=== PATIENT | female | born 1985 | race Caucasian/White ===

== ENCOUNTER → 2017-02-01 | Outpatient (CLI) | payer OTHER | END | disposition home or self-care (01) | LOC: MW.CHOBGYN 16:18 | PROVIDERS: ATTEND Obstetrics & Gynecology | DX: R10.2 Pelvic and perineal pain (principal) | CPT/HCPCS: 36415; 81025; 85025; 87480; 87510; 87660; G0145 ==

== ENCOUNTER → 2017-02-01 | Outpatient (CLI) | payer OTHER | END | disposition home or self-care (01) | LOC: MW.CHOBGYN 16:18 | PROVIDERS: ATTEND Obstetrics & Gynecology | DX: Z12.4 Encounter for screening for malignant neoplasm of cervix (principal); R10.2 Pelvic and perineal pain; N89.8 Other specified noninflammatory disorders of vagina | CPT/HCPCS: 87480; 87510; 87660; G0145 ==

== ENCOUNTER 2017-09-01 22:51 | Emergency (ER) | payer OTHER ==
--- NOTE | 2017-09-01 22:57 | EDM.PDOC ---
ED HPI GENERAL MEDICAL PROBLEM - General Chief Complaint: Chest Pain Stated Complaint: CHEST PAIN Time Seen by Provider: 09/01/17 22:56 - History of Present Illness INITIAL COMMENTS - FREE TEXT/NARRATIVE: HISTORY AND PHYSICAL: History of present illness: Patient 31-year-old white female with no significant past medical history presents a concern of chest pain this is vaguely describes mid chest without associated nausea vomiting palpitations shortness breath diaphoresis or other concern she denies trauma denies history of DVT or pulmonary embolism Review of systems: As per history of present illness and below otherwise all systems reviewed and negative. Past medical history: As per history of present illness and as reviewed below otherwise noncontributory. Surgical history: As per history of present illness and as reviewed below otherwise noncontributory. Social history: No reported history of drug or alcohol abuse. Family history: As per history of present illness and as reviewed below otherwise noncontributory. Physical exam: HEENT: Atraumatic, normocephalic, pupils reactive, negative for conjunctival pallor or scleral icterus, mucous membranes moist, throat clear, neck supple, nontender, trachea midline. Lungs: Clear to auscultation, breath sounds equal bilaterally, chest nontender. Heart: S1S2, regular, negative for clicks, rubs, or JVD. Abdomen: Soft, nondistended, nontender. Negative for masses or hepatosplenomegaly. Negative for costovertebral tenderness. Pelvis: Stable nontender. Genitourinary: Deferred. Rectal: Deferred. Extremities: Atraumatic, negative for cords or calf pain. Neurovascular unremarkable. Neuro: Awake, alert, oriented. Cranial nerves II through XII unremarkable. Cerebellum unremarkable. Motor and sensory unremarkable throughout. Exam nonfocal. Diagnostics: CBC CMP troponin PT/INR d-dimer chest x-ray EKG Therapeutics: None Impression: #1 atypical chest pain Definitive disposition and diagnosis as appropriate pending reevaluation and review of above. - Related Data Allergies Allergy/AdvReac Type Severity Reaction Status Date / Time Sulfa (Sulfonamide Allergy Hives Verified 09/01/17 22:56 Antibiotics) Home Meds: Home Meds Topiramate 1 tab PO BID 09/01/17 [History] ED ROS GENERAL - Review of Systems Review Of Systems: ROS reveals no pertinent complaints other than HPI. ED EXAM, GENERAL - Physical Exam Exam: See Below (See dictation) Course - Vital Signs Last Recorded V/S: Last Vital Signs Temp 36.8 C 09/01/17 23:00 Pulse 58 L 09/01/17 23:30 Resp 17 09/01/17 23:30 BP 112/77 09/01/17 23:30 Pulse Ox 100 09/01/17 23:30 - Orders/Labs/Meds Orders: Active Orders 24 hr Category Date Time Status EKG Documentation Completion [RC] STAT Care 09/01/17 22:53 Active Chest 1V Frontal [CR] Stat Exams 09/01/17 22:53 Taken Labs: Laboratory Tests 09/01/17 09/01/17 09/01/17 Range/Units 23:01 23:01 23:01 WBC 11.05 H (4.0-11.0) K/uL RBC 4.36 (4.30-5.90) M/uL Hgb 12.9 (12.0-16.0) g/dL Hct 38.3 (36.0-46.0) % MCV 87.8 (80.0-98.0) fL MCH 29.6 (27.0-32.0) pg MCHC 33.7 (31.0-37.0) g/dL RDW Std Deviation 42.9 (28.0-62.0) fl RDW Coeff of [place] 13 (11.0-15.0) % Plt Count 342 (150-400) K/uL MPV 10.00 (7.40-12.00) fL Neut % (Auto) 60.0 (48.0-80.0) % Lymph % (Auto) 29.8 (16.0-40.0) % [place] % (Auto) 8.4 (0.0-15.0) % Eos % (Auto) 1.4 (0.0-7.0) % Baso % (Auto) 0.4 (0.0-1.5) % Neut # (Auto) 6.6 H (1.4-5.7) K/uL Lymph # (Auto) 3.3 H (0.6-2.4) K/uL [place] # (Auto) 0.9 H (0.0-0.8) K/uL Eos # (Auto) 0.2 (0.0-0.7) K/uL Baso # (Auto) 0.0 (0.0-0.1) K/uL Nucleated RBC % 0.0 /100WBC Nucleated RBCs # 0 K/uL D-Dimer, Quantitative < 0.19 (0.0-0.52) mg/LFEU Sodium 141 (136-146) mmol/L Potassium 3.8 (3.5-5.1) mmol/L Chloride 114 H (98-110) mmol/L Carbon Dioxide 20 L (21-31) mmol/L BUN 18 (6.0-23.0) mg/dL Creatinine 1.0 (0.6-1.5) mg/dL Est Cr Clr Drug Dosing 79.14 mL/min Estimated GFR (MDRD) > 60.0 ml/min Glucose 101 (60-110) mg/dL Calcium 9.0 (8.8-10.8) mg/dL Total Bilirubin 0.3 (0.1-1.5) mg/dL AST 31 (5-40) IU/L ALT 26 (8-54) IU/L Alkaline Phosphatase 46 (40-150) Troponin I < 0.10 (0.0-0.29) NG/ML Total Protein 7.2 (6.0-8.0) g/dL Albumin 4.2 (3.5-5.0) g/dL Globulin 3.0 (2.0-3.5) g/dL Albumin/Globulin Ratio 1.4 (1.3-2.8) Meds: Medications Discontinued Medications Generic Name Dose Route Start Last Admin Trade Name Freq PRN Reason Stop Dose Admin Lidocaine HCl Confirm 09/01/17 23:08 09/01/17 23:17 Xylocaine 1% Administered 09/01/17 23:09 Not Given Dose 20 ml .ROUTE .STK-MED ONE Departure - Departure Time of Disposition: 23:52 Disposition: Home, Self-Care 01 Condition: Good Clinical Impression: Atypical chest pain - Discharge Information Referrals: PCP,None [Primary Care Provider] - Forms: ED Department Discharge Additional Instructions: The following information is given to patients seen in the emergency department who are being discharged to home. This information is to outline your options for follow-up care. We provide all patients seen in our emergency department with a follow-up referral. The need for follow-up, as well as the timing and circumstances, are variable depending upon the specifics of your emergency department visit. If you don't have a primary care physician on staff, we will provide you with a referral. We always advise you to contact your personal physician following an emergency department visit to inform them of the circumstance of the visit and for follow-up with them and/or the need for any referrals to a consulting specialist. The emergency department will also refer you to a specialist when appropriate. This referral assures that you have the opportunity for followup care with a specialist. All of these measure are taken in an effort to provide you with optimal care, which includes your followup. Under all circumstances we always encourage you to contact your private physician who remains a resource for coordinating your care. When calling for followup care, please make the office aware that this follow-up is from your recent emergency room visit. If for any reason you are refused follow-up, please contact the [facility] emergency department at and asked to speak to the emergency department charge nurse. Motrin/Tylenol as directed follow-up private medical doctor 1-2 days return as needed as discussed - My Orders Last 24 Hours: My Active Orders 09/01/17 22:53 EKG Documentation Completion [RC] STAT Chest 1V Frontal [CR] Stat - Assessment/Plan Last 24 Hours: My Active Orders 09/01/17 22:53 EKG Documentation Completion [RC] STAT Chest 1V Frontal [CR] Stat
[2017-09-01] MEDS ORDERED: Lidocaine 1% 20 ML MDV ONE (23:08)
[2017-09-01 23:28] LABS: CHLORIDE,CL 114 mmol/L (98-110); SODIUM,NA 141 mmol/L (136-146)
--- NOTE | 2017-09-02 10:57 | CR ---
EXAM DATE: 09/01/17 PATIENT'S AGE: 31 Patient: DIOMEDES SIMMONS Facility: [place], [place] Site . Site : 1985 Study: XRay Chest [id number]/25/2017 11:25:02 PM Ordering Physician: Doctor Reyes Final Report: INDICATION: Chest pain. TECHNIQUE: Chest radiograph 1 view COMPARISON: None FINDINGS: Cardiovascular and mediastinum: The heart silhouette is normal in size and morphology. The mediastinum is normal in appearance. Lungs and pleural spaces: Both lungs are unremarkable in appearance. No sign of pleural effusion seen. No pneumothorax is identified. Bones and soft tissues: No significant findings. IMPRESSION: 1. Negative chest. Dictated by Jonathan Tai MD @ 09/01/2017 11:29:29 PM Dictated by: Jonathan Tai MD @ 09/01/2017 23:29:35 (Electronic Signature) Report Signed by Proxy. MTDAl
== END 2017-09-02 00:03 | disposition home or self-care (01) ==
LOC: MW.ED 22:51
DX: R07.89 Other chest pain (principal); Z88.2 Allergy status to sulfonamides
CPT/HCPCS: 71010; 71010-26; 80053; 84484; 85025; 85379; 93005; 99283; 99285-25

== ENCOUNTER 2018-04-14 09:07 | Day surgery (SDC) | payer OTHER ==
[~2018-04-14 09:07] MED LIST: Acetaminophen 1,000 MG in Premix Bag 1 BAG IV SCH; Lactated Ringers 1,000 ML IV SCH; Scopolamine 1.5 MG Transdermal Patch TRDERM PRN; Sodium Chloride 0.9% 10 ML Syringe FLUSH PRN; Sodium Chloride 0.9% 2.5 ML Syringe FLUSH PRN; fentaNYL 100 MCG/2 ML SDV IVPUSH PRN
--- NOTE | 2018-04-14 09:43 | PCM.PREANE ---
Preanesthetic Assessment - Anesthesia/Transfusion/Family Hx Anesthesia History: Prior Anesthesia Without Reaction Family History of Anesthesia Reaction: No Transfusion History: No Prior Transfusion(s) - Review of Systems General: No Symptoms Pulmonary: No Symptoms Cardiovascular: No Symptoms Gastrointestinal: No Symptoms Neurological: No Symptoms Other: Reports: None - Physical Assessment NPO Status Date: 04/13/18 O2 Sat by Pulse Oximetry: 100 Respiratory Rate: 16 Vital Signs: Last Vital Signs Temp 35.5 C 04/14/18 09:23 Pulse 43 L 04/14/18 09:23 Resp 16 04/14/18 09:23 BP 113/69 04/14/18 09:23 Pulse Ox 100 04/14/18 09:23 Height: 1.83 m Weight: 63.049 kg ASA Class: 2 Mental Status: Alert & Oriented x3 Airway Class: Mallampati = 1 Dentition: Reports: Normal Dentition ROM/Head Extension: Full Lungs: Clear to Auscultation, Normal Respiratory Effort Cardiovascular: Regular Rate, Regular Rhythm - Lab Values: Laboratory Last Values WBC 9.71 K/uL (4.0-11.0) 04/13/18 15:46 RBC 4.67 M/uL (4.30-5.90) 04/13/18 15:46 Hgb 13.8 g/dL (12.0-16.0) 04/13/18 15:46 Hct 41.3 % (36.0-46.0) 04/13/18 15:46 MCV 88.4 fL (80.0-98.0) 04/13/18 15:46 MCH 29.6 pg (27.0-32.0) 04/13/18 15:46 MCHC 33.4 g/dL (31.0-37.0) 04/13/18 15:46 RDW Std Deviation 42.6 fl (28.0-62.0) 04/13/18 15:46 RDW Coeff of [place] 13 % (11.0-15.0) 04/13/18 15:46 Plt Count 318 K/uL (150-400) 04/13/18 15:46 MPV 10.10 fL (7.40-12.00) 04/13/18 15:46 Nucleated RBC % 0.0 /100WBC 04/13/18 15:46 Nucleated RBCs # 0 K/uL 04/13/18 15:46 Sodium 137 mmol/L (136-145) 04/13/18 15:46 Potassium 3.5 mmol/L (3.5-5.1) 04/13/18 15:46 Chloride 104 mmol/L (98-107) 04/13/18 15:46 Carbon Dioxide 23.0 mmol/L (21.0-32.0) 04/13/18 15:46 BUN 22 mg/dL (7.0-18.0) H 04/13/18 15:46 Creatinine 1.1 mg/dL (0.6-1.0) H 04/13/18 15:46 Est Cr Clr Drug Dosing 73.08 mL/min 04/13/18 15:46 Estimated GFR (MDRD) 57.6 ml/min 04/13/18 15:46 Glucose 92 mg/dL (74-106) 04/13/18 15:46 Calcium 8.6 mg/dL (8.5-10.1) 04/13/18 15:46 HCG, Qual NEGATIVE (NEG) 04/13/18 15:46 Blood Type AB POSITIVE 04/13/18 15:46 Antibody Screen NEGATIVE 04/13/18 15:46 - Allergies Allergies/Adverse Reactions: Allergies Allergy/AdvReac Type Severity Reaction Status Date / Time Sulfa (Sulfonamide Allergy Hives Verified 04/11/18 09:57 Antibiotics) - Anesthesia Plan Pre-Op Medication Ordered: None - Acknowledgements Anesthesia Type Planned: General Anesthesia Pt an Appropriate Candidate for the Planned Anesthesia: Yes Alternatives and Risks of Anesthesia Discussed w Pt/Guardian: Yes Pt/Guardian Understands and Agrees with Anesthesia Plan: Yes Additional Comments: PMH: seizure disorder, no seizures for years, migraines PLAN: GA-ETT PreAnesthesia Questionnaire HEENT History: Reports: None Cardiovascular History: Reports: None Respiratory History: Reports: None Gastrointestinal History: Reports: None Genitourinary History: Reports: None PASTE MIXER History: Reports: None Musculoskeletal History: Reports: None Neurological History: Reports: Seizure Other Neuro History: grand mal seizure in 2007, none since Psychiatric History: Reports: Anxiety Endocrine/Metabolic History: Reports: None Hematologic History: Reports: None Immunologic History: Reports: None Oncologic (Cancer) History: Reports: None Dermatologic History: Reports: None - Infectious Disease History Infectious Disease History: Reports: None - Past Surgical History Head Surgeries/Procedures: Reports: None HEENT Surgical History: Reports: Tonsillectomy - SUBSTANCE USE Smoking Status *Q: Never Smoker Recreational Drug Use History: No - HOME MEDS Home Medications: Home Meds Multivitamin [Multivitamins] 1 tab PO DAILY 04/11/18 [History] Norethindrone [Eladia] 1 tab PO DAILY 04/11/18 [History] Topiramate 1.5 tab PO BID 04/11/18 [History] - CURRENT (IN HOUSE) MEDS Current Meds: Current Medications Fentanyl (Sublimaze) 50 mcg IVPUSH .Q5MIN PRN PRN Reason: Pain Lactated Ringer's (Ringers, Lactated) 1,000 mls @ 125 mls/hr IV ASDIRECTED EDSON Last Admin: 04/14/18 09:29 Dose: 125 mls/hr Acetaminophen 1,000 mg/ Premix 100 mls @ 400 mls/hr IV .ONETIME [facility] Scopolamine (Transderm-Scop) 1.5 mg TRDERM .ONCE PRN PRN Reason: Post Op Nausea Sodium Chloride (Saline Flush) 10 ml FLUSH ASDIRECTED PRN PRN Reason: Keep Vein Open Sodium Chloride (Saline Flush) 2.5 ml FLUSH ASDIRECTED PRN PRN Reason: Keep Vein Open
[2018-04-14] MEDS ORDERED: Lidocaine 2% 5 ML SDV ONE (10:32)
[2018-04-14] MEDS ORDERED: Ondansetron 4 MG/2 ML SDV ONE (10:32)
[2018-04-14] MEDS ORDERED: Rocuronium 10 MG/ML 10 ML Syringe ONE (10:32)
[2018-04-14] MEDS ORDERED: fentaNYL 250 MCG/5 ML SDV ONE (10:33)
[2018-04-14] MEDS ORDERED: Propofol 200 MG/20 ML SDV ONE (10:33)
[2018-04-14] MEDS ORDERED: Midazolam 1 MG/ML 2 ML SDV ONE (10:33)
[2018-04-14] MEDS ORDERED: hydrALAZINE 20 MG/ML SDV ONE (11:06)
[2018-04-14] MEDS ORDERED: Octyl 2-Cyanoacrylate 1 Tube ONE (11:06)
[2018-04-14] MEDS ORDERED: ePHEDrine 50 MG/ML SDV ONE (11:59)
[2018-04-14] MEDS ORDERED: Phenylephrine/Normal Saline 100 MCG/ML 10 ML Syringe ONE (12:07)
[2018-04-14] MEDS ORDERED: Dexamethasone 4 MG/ML 5 ML MDV ONE (13:17)
[2018-04-14] MEDS ORDERED: Neostigmine Methylsulfate 1 MG/ML 5 ML Syringe ONE (13:35)
[2018-04-14] MEDS ORDERED: Glycopyrrolate 0.2 MG/ML SDV ONE (13:35)
[2018-04-14] MEDS ORDERED: Ondansetron 4 MG/2 ML SDV IVPUSH PRN (13:55)
[2018-04-14] MEDS ORDERED: Acetaminophen/oxyCODONE 325-5 MG Tab PO PRN ×2 (13:55)
[2018-04-14] MEDS ORDERED: Promethazine 25 MG/ML SDV IM PRN (13:55)
[2018-04-14] MEDS ORDERED: Ketorolac 30 MG/ML SDV IVPUSH ONE (13:55)
[2018-04-14] MEDS ORDERED: Ketorolac 30 MG/ML SDV IVPUSH PRN (13:55)
[2018-04-14] MEDS ORDERED: Morphine 2 MG/ML Syringe IVPUSH PRN (13:55)
--- NOTE | 2018-04-14 14:00 | PCM.OPNOTE ---
- General Post-Op/Procedure Note Date of Surgery/Procedure: 04/14/18 Operative Procedure(s): Dignostic Laparscopy, lysis of adhesion, Myomectomy Post-Op Diagnosis: Same Primary Surgeon: Jaime Banuelos Allied Health Professional: Briana Shukla EBL in mLs: 50 Complications: None Condition: Good
--- NOTE | 2018-04-14 14:01 | PCM.DCSUM1 ---
Discharge Summary - Discharge Data Discharge Date: 04/14/18 Discharge Disposition: Home, Self-Care 01 Condition: Good - Patient Summary/Data Operative Procedure(s) Performed: Dignostic Laparscopy, lysis of adhesion, Myomectomy - Patient Instructions Diet: Usual Diet as Tolerated Activity: As Tolerated Driving: Do Not Drive Showering/Bathing: May Shower Wound/Incision Care: Keep Operative Site/Wound Site Clean and Dry Notify Provider of: Fever - Discharge Plan Home Medications: Home Meds Multivitamin [Multivitamins] 1 tab PO DAILY 04/11/18 [History] Norethindrone [Eladia] 1 tab PO DAILY 04/11/18 [History] Topiramate 1.5 tab PO BID 04/11/18 [History] - General Info Date of Service: 04/14/18 Functional Status: Reports: Pain Controlled - Review of Systems General: Reports: No Symptoms HEENT: Reports: No Symptoms Pulmonary: Reports: No Symptoms Cardiovascular: Reports: No Symptoms Gastrointestinal: Reports: No Symptoms Genitourinary: Reports: No Symptoms Musculoskeletal: Reports: No Symptoms Skin: Reports: No Symptoms Neurological: Reports: No Symptoms Psychiatric: Reports: No Symptoms - Patient Data Vitals - Most Recent: Last Vital Signs Temp 35.5 C 04/14/18 09:23 Pulse 43 L 04/14/18 09:23 Resp 16 04/14/18 09:43 BP 113/69 04/14/18 09:23 Pulse Ox 100 04/14/18 09:43 Weight - Most Recent: 63.049 kg Lab Results - Last 24 hrs: Laboratory Results - last 24 hr 04/13/18 04/13/18 04/13/18 Range/Units 15:46 15:46 15:46 WBC 9.71 (4.0-11.0) K/uL RBC 4.67 (4.30-5.90) M/uL Hgb 13.8 (12.0-16.0) g/dL Hct 41.3 (36.0-46.0) % MCV 88.4 (80.0-98.0) fL MCH 29.6 (27.0-32.0) pg MCHC 33.4 (31.0-37.0) g/dL RDW Std Deviation 42.6 (28.0-62.0) fl RDW Coeff of [place] 13 (11.0-15.0) % Plt Count 318 (150-400) K/uL MPV 10.10 (7.40-12.00) fL Nucleated RBC % 0.0 /100WBC Nucleated RBCs # 0 K/uL Sodium 137 (136-145) mmol/L Potassium 3.5 (3.5-5.1) mmol/L Chloride 104 (98-107) mmol/L Carbon Dioxide 23.0 (21.0-32.0) mmol/L BUN 22 H (7.0-18.0) mg/dL Creatinine 1.1 H (0.6-1.0) mg/dL Est Cr Clr Drug Dosing 73.08 mL/min Estimated GFR (MDRD) 57.6 ml/min Glucose 92 (74-106) mg/dL Calcium 8.6 (8.5-10.1) mg/dL HCG, Qual NEGATIVE (NEG) Blood Type Antibody Screen 04/13/18 Range/Units 15:46 WBC (4.0-11.0) K/uL RBC (4.30-5.90) M/uL Hgb (12.0-16.0) g/dL Hct (36.0-46.0) % MCV (80.0-98.0) fL MCH (27.0-32.0) pg MCHC (31.0-37.0) g/dL RDW Std Deviation (28.0-62.0) fl RDW Coeff of [place] (11.0-15.0) % Plt Count (150-400) K/uL MPV (7.40-12.00) fL Nucleated RBC % /100WBC Nucleated RBCs # K/uL Sodium (136-145) mmol/L Potassium (3.5-5.1) mmol/L Chloride (98-107) mmol/L Carbon Dioxide (21.0-32.0) mmol/L BUN (7.0-18.0) mg/dL Creatinine (0.6-1.0) mg/dL Est Cr Clr Drug Dosing mL/min Estimated GFR (MDRD) ml/min Glucose (74-106) mg/dL Calcium (8.5-10.1) mg/dL HCG, Qual (NEG) Blood Type AB POSITIVE Antibody Screen NEGATIVE Med Orders - Current: Current Medications Fentanyl (Sublimaze) 50 mcg IVPUSH .Q5MIN PRN PRN Reason: Pain Lactated Ringer's (Ringers, Lactated) 1,000 mls @ 125 mls/hr IV ASDIRECTED EDSON Last Admin: 04/14/18 09:29 Dose: 125 mls/hr Acetaminophen 1,000 mg/ Premix 100 mls @ 400 mls/hr IV .ONETIME [facility] Last Admin: 04/14/18 12:41 Dose: 400 mls/hr Ketorolac Tromethamine (Toradol) 30 mg IVPUSH ONETIME ONE Stop: 04/14/18 13:56 Ketorolac Tromethamine (Toradol) 30 mg IVPUSH Q6H PRN PRN Reason: Pain (severe 7-10) Stop: 04/19/18 13:55 Morphine Sulfate (Morphine) 4 mg IVPUSH Q2H PRN PRN Reason: Pain (severe 7-10) Ondansetron HCl (Zofran) 4 mg IVPUSH Q6H PRN PRN Reason: Nausea/Vomiting Oxycodone/Acetaminophen (Percocet 325-5 Mg) 1 tab PO Q4H PRN PRN Reason: Pain (moderate 4-6) Oxycodone/Acetaminophen (Percocet 325-5 Mg) 2 tab PO Q4H PRN PRN Reason: Pain (moderate 4-6) Promethazine HCl (Phenergan) 25 mg IM Q6H PRN PRN Reason: Nausea/Vomiting Scopolamine (Transderm-Scop) 1.5 mg TRDERM .ONCE PRN PRN Reason: Post Op Nausea Last Admin: 04/14/18 12:41 Dose: 1.5 mg Sodium Chloride (Saline Flush) 10 ml FLUSH ASDIRECTED PRN PRN Reason: Keep Vein Open Sodium Chloride (Saline Flush) 2.5 ml FLUSH ASDIRECTED PRN PRN Reason: Keep Vein Open Discontinued Medications Dexamethasone (Dexamethasone) Confirm Administered Dose 20 mg .ROUTE .STK-MED ONE Stop: 04/14/18 13:18 Ephedrine Sulfate (Ephedrine Sulfate) Confirm Administered Dose 50 mg .ROUTE .STK-MED ONE Stop: 04/14/18 12:00 Fentanyl (Sublimaze) Confirm Administered Dose 250 mcg .ROUTE .STK-MED ONE Stop: 04/14/18 10:34 Glycopyrrolate (Robinul) Confirm Administered Dose 0.4 mg .ROUTE .STK-MED ONE Stop: 04/14/18 13:36 Hydralazine HCl (Apresoline) Confirm Administered Dose 20 mg .ROUTE .STK-MED ONE Stop: 04/14/18 11:07 Lidocaine (Xylocaine-Mpf 2%) Confirm Administered Dose 5 ml .ROUTE .STK-MED ONE Stop: 04/14/18 10:33 Midazolam HCl (Versed 1 Mg/Ml) Confirm Administered Dose 2 mg .ROUTE .STK-MED ONE Stop: 04/14/18 10:34 Neostigmine Methylsulfate (Neostigmine) Confirm Administered Dose 5 mg .ROUTE .STK-MED ONE Stop: 04/14/18 13:36 Octyl Cyanoacrylate (Dermabond Advance) Confirm Administered Dose 1 applic .ROUTE .STK-MED ONE Stop: 04/14/18 11:07 Ondansetron HCl (Zofran) Confirm Administered Dose 4 mg .ROUTE .STK-MED ONE Stop: 04/14/18 10:33 Phenylephrine HCl (Phenylephrine In Ns 100 Mcg/Ml) Confirm Administered Dose 1 mg .ROUTE .STK-MED ONE Stop: 04/14/18 12:08 Propofol (Diprivan 20 Ml) Confirm Administered Dose 200 mg .ROUTE .STK-MED ONE Stop: 04/14/18 10:34 Rocuronium [place] (Zemuron) Confirm Administered Dose 100 mg .ROUTE .STK-MED ONE Stop: 04/14/18 10:33 - Exam General: Reports: Alert, Oriented HEENT: Reports: Pupils Equal, Pupils Reactive, EOMI, Mucous Membr. Moist/[place] Neck: Reports: Supple Lungs: Reports: Clear to Auscultation, Normal Respiratory Effort Cardiovascular: Reports: Regular Rate, Regular Rhythm GI/Abdominal Exam: Normal Bowel Sounds, Soft, Non-Tender, No Organomegaly, No Distention, No Abnormal Bruit, No Mass, Pelvis Stable (Female) Exam: Normal External Exam, Normal Speculum Exam, Normal Bimanual Exam Rectal (Female) Exam: Normal Exam, Normal Rectal Tone Back Exam: Reports: Normal Inspection, Full Range of Motion Extremities: Normal Inspection, Normal Range of Motion, Non-Tender, No Pedal Edema, Normal Capillary Refill Skin: Reports: Warm, Dry, Intact Wound/Incisions: Reports: Healing Well Neurological: Reports: No New Focal Deficit Psy/Mental Status: Reports: Alert, Normal Affect, Normal Mood
--- NOTE | 2018-04-14 14:37 | PCM.POSTAN ---
POST ANESTHESIA ASSESSMENT - MENTAL STATUS Mental Status: Alert, Oriented - RESPIRATORY Respiratory Status: Respiratory Rate WNL, Airway Patent, O2 Saturation Stable - CARDIOVASCULAR CV Status: Pulse Rate WNL - GASTROINTESTINAL GI Status: No Symptoms - PAIN Pain Score: 0 - POST OP HYDRATION Hydration Status: Adequate & Stable - OBSERVATIONS Free Text/Narrative:: no anesthesia problems
--- NOTE | 2018-04-14 15:24 | PCM48HPAN ---
Post Anesthesia Note - EVALUATION WITHIN 48HRS OF ANESTHETIC Vital Signs in Normal Range: Yes Patient Participated in Evaluation: Yes Respiratory Function Stable: Yes Airway Patent: Yes Cardiovascular Function Stable: Yes Hydration Status Stable: Yes Pain Control Satisfactory: Yes Nausea and Vomiting Control Satisfactory: Yes Mental Status Recovered: Yes Resp Rate: 14
--- NOTE | 2018-04-15 12:54 | OR ---
SURGEON: Jaime Banuelos MD DATE OF PROCEDURE: 04/14/2018 PREOPERATIVE DIAGNOSIS: Pelvic pain, persistent. POSTOPERATIVE DIAGNOSES: 1. Pelvic pain, persistent. 2. Pain with a small pedunculated myoma at the top of the uterus and some pelvic scarring around the left ovary. OPERATIONS PERFORMED: Multiple puncture diagnostic laparoscopy, lysis of adhesion of the scarring around the left ovary using Harmonic scalpel, myomectomy. There was a small pedunculated fibroid at the top of the uterus, it was removed with the Harmonic scalpel without any problem. INDICATION: [place] refer to the admit note. FINDINGS: The right tubes and ovary essentially normal. There is no endometriosis. The right pelvic sidewall essentially is normal, there is no endometriosis. The cul- de-sac is normal, no endometriosis. The bladder flap is essentially normal. On the left side, there is scarring around the left ovary. There is no visible cyst in the ovary. The ovary essentially is normal. There is a small pedunculated fibroid on top of the uterus and there is no evidence of endometriosis. PROCEDURE IN DETAIL: The patient brought to the OR, properly identified. After adequate level of anesthesia and appropriate trocar to enter as we documented the findings above and I went ahead and used the Harmonic scalpel. I lysed the adhesion around the left tube and ovary, freeing the left tube and ovary completely and the small pedunculated fibroid, the stalk is coagulated and transected with Harmonic scalpel and the small fibroid removed. The removal of this fibroid should not impede this patient in the future to have a spontaneous vaginal delivery. After ascertaining there was no bleeding, no oozing multiple laparoscopic instruments were removed and the vaginal instrument was removed and the multiple laparoscopic incisions closed in layer with 3-0 Vicryl. Instrument and sponge count correct. The patient tolerated the procedure well. Went to recovery room in stable general condition. DANIEL / PIETRO /[id number]
== END 2018-04-14 15:45 | disposition home or self-care (01) ==
LOC: MW.SDS 09:07
PROVIDERS: ATTEND Obstetrics & Gynecology
DX: D25.9 Leiomyoma of uterus, unspecified (principal); N83.8 Other noninflammatory disorders of ovary, fallopian tube and broad ligament; G43.909 Migraine, unspecified, not intractable, without status migrainosus; Z79.899 Other long term (current) drug therapy; Z88.2 Allergy status to sulfonamides
CPT/HCPCS: 36415; 58545; 80048; 84703; 85027; 86850; 86900; 86901; A9270; J1100; J2250; J2405; J3010; J7120; J0360; J2704

== ENCOUNTER 2021-03-28 07:44 | Inpatient (IN) | payer OTHER ==
[2021-03-28] MEDS ORDERED: Terbutaline 1 MG/ML SDV SUBCUT PRN (08:24)
[2021-03-28] MEDS ORDERED: Misoprostol 25 MCG (1/4 of 100 MCG) Tab VAG PRN (08:24)
[2021-03-28] MEDS ORDERED: Tranexamic Acid 1,000 MG in Sodium Chloride 0.9% 100 ML IV PRN (08:32)
[2021-03-28] MEDS ORDERED: Sodium Chloride 0.9% 2.5 ML Syringe FLUSH PRN (08:32)
[2021-03-28] MEDS ORDERED: Water For Irrigation,Sterile 1,000 ML Container IRR PRN (08:32)
[2021-03-28] MEDS ORDERED: Methylergonovine 0.2 MG/1 ML Amp IM PRN (08:32)
[2021-03-28] MEDS ORDERED: Nalbuphine 10 MG/1 ML Vial IVPUSH PRN (08:32)
[2021-03-28] MEDS ORDERED: Ondansetron 4 MG/2 ML SDV IVPUSH PRN (08:32)
[2021-03-28] MEDS ORDERED: Lidocaine 1% 50 ML MDV INJECT PRN (08:32)
[2021-03-28] MEDS ORDERED: Butorphanol 1 MG/ML SDV IVPUSH PRN (08:32)
[2021-03-28] MEDS ORDERED: Sodium Chloride 0.9% 10 ML SDV IV PRN (08:32)
[2021-03-28] MEDS ORDERED: Sodium Chloride 0.9% 10 ML Syringe FLUSH PRN (08:32)
[2021-03-28] MEDS ORDERED: Carboprost Tromethamine 250 MCG/1 ML Amp IM PRN (08:32)
[2021-03-28] MEDS ORDERED: Misoprostol 200 MCG Tab PO PRN (08:32)
[2021-03-28] MEDS: Lactated Ringers 1,000 ML IV SCH ×3 (08:50→19:44)
[2021-03-28] MEDS: Misoprostol 25 MCG (1/4 of 100 MCG) Tab VAG PRN ×2 (09:07→13:11)
[2021-03-28] MEDS: Oxytocin/0.9 % Sodium Chloride 30 UNIT/500 ML BAG IV SCH ×4 (17:17→20:56)
[2021-03-28] MEDS ORDERED: Ropivacaine HCl/PF 200 ML ONE (18:55)
[2021-03-28] MEDS ORDERED: fentaNYL 100 MCG/2 ML SDV ONE (18:56)
--- NOTE | 2021-03-28 19:41 | PCM.PREANE ---
Preanesthetic Assessment - Procedure Proposed Procedure: H & P for JAZZY for active labor (full-term). - Anesthesia/Transfusion/Family Hx Anesthesia History: Prior Anesthesia Without Reaction (T & A, wisdom teeth, previous epidural, all without anesthesia complications.) Family History of Anesthesia Reaction: No Transfusion History: No Prior Transfusion(s) Additional History: History of seizures (3 in 2007). Unknown cause. Off of medication during with no recurrence. - Review of Systems General: No Symptoms Pulmonary: No Symptoms Cardiovascular: No Symptoms Gastrointestinal: No Symptoms Neurological: No Symptoms Other: Reports: None - Physical Assessment NPO Status Date: 03/28/21 NPO Status Time: 18:00 (Clear liquids okay) Height: 1.85 m Weight: 91.17 kg ASA Class: 2 Mental Status: Alert & Oriented x3 Dentition: Reports: Normal Dentition Thyro-Mental Finger Breadths: 4 Mouth Opening Finger Breadths: 3 ROM/Head Extension: Full Lungs: Normal Respiratory Effort Cardiovascular: Regular Rate, Regular Rhythm - Lab Values: Laboratory Last Values WBC 12.55 K/uL (4.0-11.0) H 03/28/21 08:05 RBC 4.02 M/uL (4.30-5.90) L 03/28/21 08:05 Hgb 11.2 g/dL (12.0-16.0) L 03/28/21 08:05 Hct 34.1 % (36.0-46.0) L 03/28/21 08:05 MCV 84.8 fL (80.0-98.0) 03/28/21 08:05 MCH 27.9 pg (27.0-32.0) 03/28/21 08:05 MCHC 32.8 g/dL (31.0-37.0) 03/28/21 08:05 RDW Std Deviation 40.9 fl (28.0-62.0) 03/28/21 08:05 RDW Coeff of [place] 13 % (11.0-15.0) 03/28/21 08:05 Plt Count 254 K/uL (150-400) 03/28/21 08:05 MPV 10.70 fL (7.40-12.00) 03/28/21 08:05 Nucleated RBC % 0.0 /100WBC 03/28/21 08:05 Nucleated RBCs # 0 K/uL 03/28/21 08:05 Blood Type AB POSITIVE 03/28/21 08:05 Antibody Screen NEGATIVE 03/28/21 08:05 - Allergies Allergies/Adverse Reactions: Allergies Allergy/AdvReac Type Severity Reaction Status Date / Time Sulfa (Sulfonamide Allergy Hives Verified 03/27/21 13:13 Antibiotics) - Acknowledgements Anesthesia Type Planned: Epidural Pt an Appropriate Candidate for the Planned Anesthesia: Yes Alternatives and Risks of Anesthesia Discussed w Pt/Guardian: Yes Pt/Guardian Understands and Agrees with Anesthesia Plan: Yes Additional Comments: Discussed epidural risks, benefits, alternatives, procedure, and DOCTOR OF DENTAL MEDICINE. All questions answered and concerns addressed. Consent signed with RN witness. PreAnesthesia Questionnaire HEENT History: Reports: None Cardiovascular History: Reports: None Respiratory History: Reports: None Gastrointestinal History: Reports: None Genitourinary History: Reports: None RN FLIGHT History: Reports: , Other (See Below) Other OB/BYN History: ovarian cyst removed in 2018 Musculoskeletal History: Reports: None Neurological History: Reports: Seizure Other Neuro History: grand mal seizure in 2007, none since Psychiatric History: Reports: Anxiety Endocrine/Metabolic History: Reports: None Hematologic History: Reports: None Immunologic History: Reports: None Oncologic (Cancer) History: Reports: None Dermatologic History: Reports: None - Infectious Disease History Infectious Disease History: Reports: None - Past Surgical History Head Surgeries/Procedures: Reports: None HEENT Surgical History: Reports: Tonsillectomy Cardiovascular Surgical History: Reports: None Female Surgical History: Reports: None Musculoskeletal Surgical History: Reports: None - HOME MEDS Home Medications: Home Meds Aspirin [Halfprin] 81 mg PO DAILY 03/27/21 [History] Vits #93/Iron Fum/FA [ Formula Tablet] 1 each PO DAILY 03/27/21 [History] - CURRENT (IN HOUSE) MEDS Current Meds: Current Medications Butorphanol Tartrate (Butorphanol 1 Mg/Ml Sdv) 1 mg IVPUSH Q1H PRN PRN Reason: Pain Last Admin: 03/28/21 17:23 Dose: 1 mg Documented by: Carboprost Tromethamine (Carboprost Tromethamine 250 Mcg/1 Ml Amp) 250 mcg IM ASDIRECTED PRN PRN Reason: Post Hemorrhage Oxytocin/Sodium Chloride (Oxytocin 30 Unit/500 Ml-Ns) 30 unit in 500 mls @ 2 mls/hr IV TITRATE EDSON; Protocol Last Admin: 03/28/21 17:17 Dose: 2 munits/min, 2 mls/hr Documented by: Lactated Ringer's (Ringers, Lactated) 1,000 mls @ 150 mls/hr IV ASDIRECTED EDSON Last Admin: 03/28/21 13:15 Dose: 150 mls/hr Documented by: Tranexamic Acid 1,000 mg/ (Sodium Chloride) 110 mls @ 660 mls/hr IV ONETIME PRN PRN Reason: Bleeding Lidocaine HCl (Lidocaine 1% 50 Ml Mdv) 50 ml INJECT ONETIME PRN PRN Reason: Laceration repair Methylergonovine Maleate (Methylergonovine 0.2 Mg/1 Ml Amp) 0.2 mg IM A SDIRECTED PRN PRN Reason: Post Hemorrhage Misoprostol (Misoprostol 25 Mcg (1/4 Of 100 Mcg) Tab) 25 mcg VAG ONETIME PRN PRN Reason: Cervical Ripening Misoprostol (Misoprostol 25 Mcg (1/4 Of 100 Mcg) Tab) 25 mcg VAG Q6H PRN PRN Reason: Cervical Ripening Last Admin: 03/28/21 13:11 Dose: 25 mcg Documented by: Misoprostol (Misoprostol 200 Mcg Tab) 200 mcg PO ONETIME PRN PRN Reason: Post Hemorrhage Nalbuphine HCl (Nalbuphine 10 Mg/1 Ml Vial) 10 mg IVPUSH Q1H PRN PRN Reason: Pain (severe 7-10) Ondansetron HCl (Ondansetron 4 Mg/2 Ml Sdv) 4 mg IVPUSH Q4H PRN PRN Reason: Nausea/Vomiting Sodium Chloride (Sodium Chloride 0.9% 10 Ml Syringe) 10 ml FLUSH ASDIRECTED PRN PRN Reason: Keep Vein Open Sodium Chloride (Sodium Chloride 0.9% 2.5 Ml Syringe) 2.5 ml FLUSH ASDIRECTED PRN PRN Reason: Keep Vein Open Sodium Chloride (Sodium Chloride 0.9% 10 Ml Sdv) 10 ml IV ASDIRECTED PRN PRN Reason: IV Use Sterile Water (Water For Irrigation,Sterile 1,000 Ml Container) 1,000 ml IRR ASDIRECTED PRN PRN Reason: delivery Terbutaline Sulfate (Terbutaline 1 Mg/Ml Sdv) 0.25 mg SUBCUT ASDIRECTED PRN PRN Reason: Tacysystole Discontinued Medications Fentanyl (Fentanyl 100 Mcg/2 Ml Sdv) Confirm Administered Dose 400 mcg .ROUTE .STK-MED ONE Stop: 03/28/21 18:57 Ropivacaine (Naropin 0.2%) Confirm Administered Dose 200 mls @ as directed .ROUTE .STK-MED ONE Stop: 03/28/21 18:56
--- NOTE | 2021-03-28 19:52 | PCM.SN.2 ---
- Free Text/Narrative Note: 1855- To LDR 4, thorough H&P with patient cooperation. Labs and chart reviewed. Discussed epidural risks, benefits, alternatives, procedure, and AUDIO VISUAL COLLECTIONS COORDINATOR. All questions answered and concerns addressed. 1899- Consent signed with RN witness. 190- Sitting position, ASA monitors on, VSS. Time-out. 1905- Sterile procedure employed (gloves, hat), chlorhexidine prep., sterile plastic drape. 191- Localized with lido 1% at L2-3 191- 1st attempt successful at L2-3. TJ with saline at 6.5cm, catheter threaded without resistance to 11cm. No paresthesias. 191- Negative to aspiration for both CSF and heme, test dose negative. 192- Bolus dose (8ml Ropivicaine 0.2% with 2 mcg/ml fentanyl) and continuous infusion started (10 ml/hr ropivicaine 0.2% with 2 mcg/ml fentanyl, 4ml AUDIO VISUAL COLLECTIONS COORDINATOR option every 10 min, hourly lockout 36ml). Education provided on AUDIO VISUAL COLLECTIONS COORDINATOR, verbalized understanding. 1946- Adequate pain control, T0 level, VSS.
[2021-03-29] MEDS ORDERED: oxyCODONE 5 MG Tab PO PRN (00:12)
[2021-03-29] MEDS ORDERED: Witch Hazel Medicated Pads 40/Jar TOP PRN (00:12)
[2021-03-29] MEDS ORDERED: Measles, Mumps & Rubella Vaccine 0.5 ML SDV SUBCUT ONE (00:12)
[2021-03-29] MEDS ORDERED: Bisacodyl 10 MG Supp RECTAL PRN (00:12)
[2021-03-29] MEDS ORDERED: Lanolin 100% Cream 7 GM Tube TOP PRN (00:12)
[2021-03-29] MEDS ORDERED: Benzocaine/Menthol 20%-0.5% Spray 78 GM Cannister TOP PRN (00:12)
[2021-03-29] MEDS ORDERED: Docusate Sodium 100 MG Cap PO PRN (00:12)
--- NOTE | 2021-03-29 00:18 | PCM.DEL ---
L & D Note - General Info Date of Service: 03/29/21 Mother's Due Date: 04/04/21 - Delivery Note Labor: Induced by Oxytocin Cervical Ripening Method: Misoprostil Delivery Outcome: Livebirth Infant Delivery Method: Spontaneous Vaginal Delivery-Single Presentation: Vertex Nuchal Cord: None Anesthesia Type: Epidural Amniotic Fluid Description: Clear Episiotomy Type: None Laceration: 1st Degree, Labial (right) Suture type: Vicryl Suture size: 3-0 Placenta: Intact, Spontaneous Cord: 3 Vessels Estimated Blood Loss: 500 Resuscitation Needed: No [place]: Bulb Syringe, Stimulated, Warmed Score 1 min: 8 Score 5 min: 9 Delivery Comments (Free Text/Narrative):: Live male , weight 3340g, Caroline - General Info Date of Service: 03/29/21 - Patient Data Weight - Most Recent: 91.17 kg I&O - Last 24 Hours: Intake & Output 03/28/21 03/28/21 03/29/21 14:59 22:59 06:59 Output Total 500 Balance -500 Lab Results Last 24 Hours: Laboratory Results - last 24 hr 03/28/21 03/28/21 Range/Units 08:05 08:05 WBC 12.55 H (4.0-11.0) K/uL RBC 4.02 L (4.30-5.90) M/uL Hgb 11.2 L (12.0-16.0) g/dL Hct 34.1 L (36.0-46.0) % MCV 84.8 (80.0-98.0) fL MCH 27.9 (27.0-32.0) pg MCHC 32.8 (31.0-37.0) g/dL RDW Std Deviation 40.9 (28.0-62.0) fl RDW Coeff of [place] 13 (11.0-15.0) % Plt Count 254 (150-400) K/uL MPV 10.70 (7.40-12.00) fL Nucleated RBC % 0.0 /100WBC Nucleated RBCs # 0 K/uL Blood Type AB POSITIVE Antibody Screen NEGATIVE Med Orders - Current: Current Medications Acetaminophen (Acetaminophen 500 Mg Tab) 1,000 mg PO Q6H PRN PRN Reason: Pain (mild 1-3) Benzocaine/Menthol (Benzocaine/Menthol 20%-0.5% [place] 78 Gm Cannister) 78 gm TOP ASDIRECTED PRN PRN Reason: Perineal Comfort Measure Bisacodyl (Bisacodyl 10 Mg Supp) 10 mg RECTAL ONETIME PRN PRN Reason: Constipation Butorphanol Tartrate (Butorphanol 1 Mg/Ml Sdv) 1 mg IVPUSH Q1H PRN PRN Reason: Pain Last Admin: 03/28/21 17:23 Dose: 1 mg Documented by: Carboprost Tromethamine (Carboprost Tromethamine 250 Mcg/1 Ml Amp) 250 mcg IM ASDIRECTED PRN PRN Reason: Post Hemorrhage Docusate Sodium (Docusate Sodium 100 Mg Cap) 100 mg PO Q12H PRN PRN Reason: Constipation Emollient Ointment (Lanolin 100% Cream 7 Gm Tube) 0 gm TOP ASDIRECTED PRN PRN Reason: Sore Nipples Oxytocin/Sodium Chloride (Oxytocin 30 Unit/500 Ml-Ns) 30 unit in 500 mls @ 2 mls/hr IV TITRATE [facility]; Protocol Last Admin: 03/28/21 20:56 Dose: 8 munits/min, 8 mls/hr Documented by: Lactated Ringer's (Ringers, Lactated) 1,000 mls @ 150 mls/hr IV ASDIRECTED EDSON Last Admin: 03/28/21 19:44 Dose: 150 mls/hr Documented by: Tranexamic Acid 1,000 mg/ (Sodium Chloride) 110 mls @ 660 mls/hr IV ONETIME PRN PRN Reason: Bleeding Ibuprofen (Ibuprofen 800 Mg Tab) 800 mg PO Q8H PRN PRN Reason: Pain (mild 1-3) Lidocaine HCl (Lidocaine 1% 50 Ml Mdv) 50 ml INJECT ONETIME PRN PRN Reason: Laceration repair Measles/Mumps/Rubella Vaccine Live (Measles, Mumps & Rubella Vaccine 0.5 Ml Sdv) 0.5 ml SUBCUT .ONCE ONE Stop: 03/29/21 00:13 Methylergonovine Maleate (Methylergonovine 0.2 Mg/1 Ml Amp) 0.2 mg IM ASDIRECTED PRN PRN Reason: Post Hemorrhage Misoprostol (Misoprostol 25 Mcg (1/4 Of 100 Mcg) Tab) 25 mcg VAG ONETIME PRN PRN Reason: Cervical Ripening Misoprostol (Misoprostol 25 Mcg (1/4 Of 100 Mcg) Tab) 25 mcg VAG Q6H PRN PRN Reason: Cervical Ripening Last Admin: 03/28/21 13:11 Dose: 25 mcg Documented by: Misoprostol (Misoprostol 200 Mcg Tab) 200 mcg PO ONETIME PRN PRN Reason: Post Hemorrhage Nalbuphine HCl (Nalbuphine 10 Mg/1 Ml Vial) 10 mg IVPUSH Q1H PRN PRN Reason: Pain (severe 7-10) Ondansetron HCl (Ondansetron 4 Mg/2 Ml Sdv) 4 mg IVPUSH Q4H PRN PRN Reason: Nausea/Vomiting Oxycodone HCl (Oxycodone 5 Mg Tab) 5 mg PO Q2H PRN PRN Reason: Pain (severe 7-10) Sodium Chloride (Sodium Chloride 0.9% 10 Ml Syringe) 10 ml FLUSH ASDIRECTED PRN PRN Reason: Keep Vein Open Sodium Chloride (Sodium Chloride 0.9% 2.5 Ml Syringe) 2.5 ml FLUSH ASDIRECTED PRN PRN Reason: Keep Vein Open Sodium Chloride (Sodium Chloride 0.9% 10 Ml Sdv) 10 ml IV ASDIRECTED PRN PRN Reason: IV Use Sterile Water (Water For Irrigation,Sterile 1,000 Ml Container) 1,000 ml IRR ASDIRECTED PRN PRN Reason: delivery Terbutaline Sulfate (Terbutaline 1 Mg/Ml Sdv) 0.25 mg SUBCUT ASDIRECTED PRN PRN Reason: Tacysystole Witch Kaylee (Witch Kaylee Medicated Pads 40/Jar) 1 pad TOP ASDIRECTED PRN PRN Reason: comfort care Discontinued Medications Fentanyl (Fentanyl 100 Mcg/2 Ml Sdv) Confirm Administered Dose 400 mcg .ROUTE .STK-MED ONE Stop: 03/28/21 18:57 Ropivacaine (Naropin 0.2%) Confirm Administered Dose 200 mls @ as directed .ROUTE .STK-MED ONE Stop: 03/28/21 18:56 - Exam Urinary Catheter Total Time: 0Days 0Hours - Problem List & Annotations (1) Vaginal delivery SNOMED Code(s): 844975686 Code(s): O80 - ENCOUNTER FOR FULL-TERM UNCOMPLICATED DELIVERY Status: Acute Current Visit: Yes (2) Advanced maternal age, delivered SNOMED Code(s): 652185873, 041311693 Code(s): CEQ0027 - Status: Acute Current Visit: Yes (3) resulting from in-vitro fertilization SNOMED Code(s): 16205292854511 Code(s): O09.819 - SUPRVSN OF PREG RSLT FROM ASSISTED REPRODCTV TECH, UNSP TRI Status: Acute Current Visit: Yes - Problem List Review Problem List Initiated/Reviewed/Updated: Yes - My Orders Last 24 Hours: My Active Orders 03/29/21 00:12 Patient Status [ADT] Routine May Shower [RC] ASDIRECTED Notify Provider Vital Signs [RC] ASDIRECTED Up ad Mitra [RC] ASDIRECTED Vital Signs [RC] PER UNIT ROUTINE Acetaminophen [Tylenol Extra Strength] 1,000 mg PO Q6H PRN Benzocaine/Menthol [Dermoplast Pain Relief 20%-0.5% [place]] 78 gm TOP ASDIRECTED PRN Docusate Sodium [Colace] 100 mg PO Q12H PRN Ibuprofen [Motrin] 800 mg PO Q8H PRN Lanolin [Lansinoh HPA] See Dose Instructions TOP ASDIRECTED PRN Measles, Mumps & Rubella [M-M-R II Vaccine] 0.5 ml SUBCUT .ONCE ONE bisacodyL [Dulcolax] 10 mg RECTAL ONETIME PRN oxyCODONE 5 mg PO Q2H PRN witch Kaylee [Tucks] 1 pad TOP ASDIRECTED PRN Assess Lochia [WOMSER] Per Unit Routine Assess Uterine Involution [WOMSER] Per Unit Routine Breast Pump [WOMSER] Per Unit Routine Ice Therapy [OM.PC] Per Unit Routine Perineal Care [OM.PC] Per Unit Routine Peripheral IV Discontinue [OM.PC] Routine Sitz Bath [OM.PC] Per Unit Routine 03/29/21 00:13 Cooling Warming Measures [RC] ASDIRECTED 03/29/21 Breakfast Regular Diet [DIET] 03/30/21 05:11 HEMOGLOBIN/HEMATOCRIT,HH [HEME] Timed - Assessment Assessment:: 35yo s/p at 39w0d - Plan Plan:: Admit to unit for routine care. Rubella non-immune - MMR IVF AMA
[2021-03-29] MEDS: Ibuprofen 800 MG Tab PO PRN ×3 (00:32→16:31)
[2021-03-29] MEDS: Acetaminophen 500 MG Tab PO PRN ×4 (00:32→20:38)
--- NOTE | 2021-03-29 04:30 | OR ---
SURGEON: Deidre Tripathi MD DATE OF PROCEDURE: 03/28/2021 PREOPERATIVE DIAGNOSES: 1. A 35-year-old, 2, para 1-0-0-1 at 39 weeks and 0 days' gestation. 2. Induction of labor for advanced maternal age, in vitro fertilization , and twin gestation with demise of the second infant in first trimester. 3. Group B Streptococcus negative. POSTOPERATIVE DIAGNOSES: 1. A 35-year-old, 2, para 2-0-0-2 at 39 weeks and 0 days' gestation. 2. Induction of labor for advanced maternal age, in vitro fertilization , and twin gestation with demise of the second infant in first trimester. 3. Group B Streptococcus negative. PROCEDURE: Spontaneous vaginal delivery and repair of first-degree perineal and right labial lacerations. ANESTHESIA: Epidural. PRIMARY SURGEON: Deidre Tripathi MD ESTIMATED BLOOD LOSS: 500 mL. FINDINGS: Live male infant in cephalic presentation. score of 8 and 9 at one and five minutes respectively. Weight 3320 g. First-degree perineal and right labial laceration. The placenta intact with 3-vessel cord. INDICATIONS: This is a 35-year-old, G2, P1-0-0-1, who presented at 39 weeks and 0 days' gestation for scheduled induction of labor due to advanced maternal age and IVF . On presentation, she was given one dose of Cytotec for cervical ripening and began to start jeff. She was then started on Pitocin. She underwent artificial rupture of membranes with clear fluid noted. She received an epidural for pain control. She progressed to complete cervical dilation. I was called to the room. DESCRIPTION OF PROCEDURE: I arrived to the room with head at +4 station. Over the next 4 contractions, the patient pushed and delivered a live male infant. The head was delivered followed quickly by the shoulders and remainder of the body. The infant was placed on the maternal abdomen. After approximately 2 minutes, the cord was clamped and cut. Cord blood was obtained. The placenta then delivered intact with 3-vessel cord via the Champagne-Sr maneuver. The perineum was inspected and a first-degree perineal laceration and a right labial laceration were noted. These were repaired to anatomy and hemostasis with 3-0 Vicryl. With fundal rubs, the bleeding became scant. The patient and infant tolerated the delivery well. [id number] / MODL /[id number] MTDD
--- NOTE | 2021-03-29 10:03 | PCM.PNPP ---
- General Info Date of Service: 03/29/21 Subjective Update: Doing well. Working on . Functional Status: Reports: Pain Controlled, Tolerating Diet, Ambulating, Urinating - Review of Systems General: Reports: No Symptoms HEENT: Reports: No Symptoms Pulmonary: Reports: No Symptoms Cardiovascular: Reports: No Symptoms Gastrointestinal: Reports: No Symptoms Genitourinary: Reports: No Symptoms Musculoskeletal: Reports: No Symptoms Skin: Reports: No Symptoms Neurological: Reports: No Symptoms Psychiatric: Reports: No Symptoms - Patient Data Vital Signs - Most Recent: Last Vital Signs Temp 36.3 C 03/29/21 08:24 Pulse 74 03/29/21 08:24 Resp 18 03/29/21 08:24 BP 112/73 03/29/21 08:24 Pulse Ox 98 03/29/21 08:24 Weight - Most Recent: 91.17 kg I&O - Last 24 Hours: Intake & Output 03/28/21 03/29/21 03/29/21 22:59 06:59 14:59 Output Total 500 Balance -500 Med Orders - Current: Current Medications Acetaminophen (Acetaminophen 500 Mg Tab) 1,000 mg PO Q6H PRN PRN Reason: Pain (mild 1-3) Last Admin: 03/29/21 08:12 Dose: 1,000 mg Documented by: Benzocaine/Menthol (Benzocaine/Menthol 20%-0.5% [place] 78 Gm Cannister) 78 gm TOP ASDIRECTED PRN PRN Reason: Perineal Comfort Measure Last Admin: 03/29/21 00:31 Dose: 1 can Documented by: Bisacodyl (Bisacodyl 10 Mg Supp) 10 mg RECTAL ONETIME PRN PRN Reason: Constipation Butorphanol Tartrate (Butorphanol 1 Mg/Ml Sdv) 1 mg IVPUSH Q1H PRN PRN Reason: Pain Last Admin: 03/28/21 17:23 Dose: 1 mg Documented by: Carboprost Tromethamine (Carboprost Tromethamine 250 Mcg/1 Ml Amp) 250 mcg IM ASDIRECTED PRN PRN Reason: Post Hemorrhage Docusate Sodium (Docusate Sodium 100 Mg Cap) 100 mg PO Q12H PRN PRN Reason: Constipation Last Admin: 03/29/21 08:12 Dose: 100 mg Documented by: Emollient Ointment (Lanolin 100% Cream 7 Gm Tube) 0 gm TOP ASDIRECTED PRN PRN Reason: Sore Nipples Oxytocin/Sodium Chloride (Oxytocin 30 Unit/500 Ml-Ns) 30 unit in 500 mls @ 2 mls/hr IV TITRATE [facility]DSON; Protocol Last Admin: 03/28/21 20:56 Dose: 8 munits/min, 8 mls/hr Documented by: Lactated Ringer's (Ringers, Lactated) 1,000 mls @ 150 mls/hr IV ASDIRECTED EDSON Last Admin: 03/28/21 19:44 Dose: 150 mls/hr Documented by: Tranexamic Acid 1,000 mg/ (Sodium Chloride) 110 mls @ 660 mls/hr IV ONETIME PRN PRN Reason: Bleeding Ibuprofen (Ibuprofen 800 Mg Tab) 800 mg PO Q8H PRN PRN Reason: Pain (mild 1-3) Last Admin: 03/29/21 08:11 Dose: 800 mg Documented by: Lidocaine HCl (Lidocaine 1% 50 Ml Mdv) 50 ml INJECT ONETIME PRN PRN Reason: Laceration repair Methylergonovine Maleate (Methylergonovine 0.2 Mg/1 Ml Amp) 0.2 mg IM ASDIRECTED PRN PRN Reason: Post Hemorrhage Misoprostol (Misoprostol 25 Mcg (1/4 Of 100 Mcg) Tab) 25 mcg VAG ONETIME PRN PRN Reason: Cervical Ripening Misoprostol (Misoprostol 25 Mcg (1/4 Of 100 Mcg) Tab) 25 mcg VAG Q6H PRN PRN Reason: Cervical Ripening Last Admin: 03/28/21 13:11 Dose: 25 mcg Documented by: Misoprostol (Misoprostol 200 Mcg Tab) 200 mcg PO ONETIME PRN PRN Reason: Post Hemorrhage Nalbuphine HCl (Nalbuphine 10 Mg/1 Ml Vial) 10 mg IVPUSH Q1H PRN PRN Reason: Pain (severe 7-10) Ondansetron HCl (Ondansetron 4 Mg/2 Ml Sdv) 4 mg IVPUSH Q4H PRN PRN Reason: Nausea/Vomiting Oxycodone HCl (Oxycodone 5 Mg Tab) 5 mg PO Q2H PRN PRN Reason: Pain (severe 7-10) Sodium Chloride (Sodium Chloride 0.9% 10 Ml Syringe) 10 ml FLUSH ASDIRECTED PRN PRN Reason: Keep Vein Open Sodium Chloride (Sodium Chloride 0.9% 2.5 Ml Syringe) 2.5 ml FLUSH ASDIRECTED PRN PRN Reason: Keep Vein Open Sodium Chloride (Sodium Chloride 0.9% 10 Ml Sdv) 10 ml IV ASDIRECTED PRN PRN Reason: IV Use Sterile Water (Water For Irrigation,Sterile 1,000 Ml Container) 1,000 ml IRR ASDIRECTED PRN PRN Reason: delivery Terbutaline Sulfate (Terbutaline 1 Mg/Ml Sdv) 0.25 mg SUBCUT ASDIRECTED PRN PRN Reason: Tacysystole Witch Mina (Witch Mina Medicated Pads 40/Jar) 1 pad TOP ASDIRECTED PRN PRN Reason: comfort care Last Admin: 03/29/21 00:32 Dose: 1 can Documented by: Discontinued Medications Fentanyl (Fentanyl 100 Mcg/2 Ml Sdv) Confirm Administered Dose 400 mcg .ROUTE .STK-MED ONE Stop: 03/28/21 18:57 Ropivacaine (Naropin 0.2%) Confirm Administered Dose 200 mls @ as directed .ROUTE .STK-MED ONE Stop: 03/28/21 18:56 Measles/Mumps/Rubella Vaccine Live (Measles, Mumps & Rubella Vaccine 0.5 Ml Sdv) 0.5 ml SUBCUT .ONCE ONE Stop: 03/29/21 00:13 - Infant Interaction Infant Disposition, : in Room with Family Interaction: Holding Feeding: Attempted ; Nursed Fair/Poor Support Person: - Recovery Exam Fundal Level: 2 Fingerbreadths Below Umbilicus Fundal Placement: Midline Lochia Amount: Scant Lochia Color: Rubra/Red Bladder Status: Voiding Urinary Elimination: Voided - Exam General: Alert, Oriented Neck: Supple Lungs: Clear to Auscultation, Normal Respiratory Effort GI/Abdominal Exam: Soft, Non-Tender, No Distention Extremities: Non-Tender, No Pedal Edema Skin: Warm, Dry, Intact Neurological: No New Focal Deficit Psy/Mental Status: Alert, Normal Affect, Normal Mood - Problem List & Annotations (1) Vaginal delivery SNOMED Code(s): 336244256 Code(s): O80 - ENCOUNTER FOR FULL-TERM UNCOMPLICATED DELIVERY Status: Acute Current Visit: Yes (2) Advanced maternal age, delivered SNOMED Code(s): 367238463, 963120256 Code(s): UXF9367 - Status: Acute Current Visit: Yes (3) resulting from in-vitro fertilization SNOMED Code(s): 18328145868285 Code(s): O09.819 - SUPRVSN OF PREG RSLT FROM ASSISTED REPRODCTV TECH, UNSP TRI Status: Acute Current Visit: Yes - Problem List Review Problem List Initiated/Reviewed/Updated: Yes - My Orders Last 24 Hours: My Active Orders 03/29/21 00:12 Patient Status [ADT] Routine May Shower [RC] ASDIRECTED Notify Provider Vital Signs [RC] ASDIRECTED Up ad Mitra [RC] ASDIRECTED Vital Signs [RC] PER UNIT ROUTINE Acetaminophen [Tylenol Extra Strength] 1,000 mg PO Q6H PRN Benzocaine/Menthol [Dermoplast Pain Relief 20%-0.5% [place]] 78 gm TOP ASDIRECTED PRN Docusate Sodium [Colace] 100 mg PO Q12H PRN Ibuprofen [Motrin] 800 mg PO Q8H PRN Lanolin [Lansinoh HPA] See Dose Instructions TOP ASDIRECTED PRN bisacodyL [Dulcolax] 10 mg RECTAL ONETIME PRN oxyCODONE 5 mg PO Q2H PRN witch [place] [Tucks] 1 pad TOP ASDIRECTED PRN Assess Lochia [WOMSER] Per Unit Routine Assess Uterine Involution [WOMSER] Per Unit Routine Breast Pump [WOMSER] Per Unit Routine Ice Therapy [OM.PC] Per Unit Routine Perineal Care [OM.PC] Per Unit Routine Peripheral IV Discontinue [OM.PC] Routine Sitz Bath [OM.PC] Per Unit Routine 03/29/21 00:13 Cooling Warming Measures [RC] ASDIRECTED 03/29/21 Breakfast Regular Diet [DIET] 03/30/21 05:11 HEMOGLOBIN/HEMATOCRIT,HH [HEME] Timed - Assessment Assessment:: 35yo s/p at 39w0d, PPD#1 - Plan Plan:: Admit to unit for routine care. Rubella non-immune - MMR IVF AMA Plan to discharge home tomorrow due to late time of delivery and need for 24- hour labs for baby. Plan for circumcision if possible tomorrow.
--- NOTE | 2021-03-29 11:19 | PCM48HPAN ---
Post Anesthesia Note - EVALUATION WITHIN 48HRS OF ANESTHETIC Vital Signs in Normal Range: Yes Patient Participated in Evaluation: Yes Respiratory Function Stable: Yes Airway Patent: Yes Cardiovascular Function Stable: Yes Hydration Status Stable: Yes Pain Control Satisfactory: Yes (Reports mild pain (3/10), satisfactory control.) Nausea and Vomiting Control Satisfactory: Yes (Denies N/V since 0300 last night. Ate full breakfast. ) Mental Status Recovered: Yes Vital Signs: Last Vital Signs Temp 36.3 C 03/29/21 08:24 Pulse 74 03/29/21 08:24 Resp 18 03/29/21 08:24 BP 112/73 03/29/21 08:24 Pulse Ox 98 03/29/21 08:24 - COMMENTS/OBSERVATIONS Free Text/Narrative:: Ambulating without difficulty, reports full return of strength and sensation to BLE.
[2021-03-30] MEDS: Ibuprofen 800 MG Tab PO PRN ×2 (01:12→10:24)
[2021-03-30] MEDS: Acetaminophen 500 MG Tab PO PRN (07:00)
--- NOTE | 2021-03-30 08:58 | PCM.PNPP ---
- General Info Date of Service: 03/30/21 Subjective Update: Patient resting. Per RN, no problems overnight. has been going better today. Functional Status: Reports: Pain Controlled, Tolerating Diet, Ambulating, Urinating - Review of Systems General: Reports: No Symptoms HEENT: Reports: No Symptoms Pulmonary: Reports: No Symptoms Cardiovascular: Reports: No Symptoms Gastrointestinal: Reports: No Symptoms Genitourinary: Reports: No Symptoms Musculoskeletal: Reports: No Symptoms Skin: Reports: No Symptoms Neurological: Reports: No Symptoms Psychiatric: Reports: No Symptoms - Patient Data Vital Signs - Most Recent: Last Vital Signs Temp 35.6 C L 03/30/21 08:00 Pulse 80 03/30/21 08:00 Resp 18 03/30/21 08:00 BP 115/76 03/30/21 08:00 Pulse Ox 98 03/30/21 08:00 Weight - Most Recent: 91.17 kg Lab Results - Last 24 Hours: Laboratory Results - last 24 hr 03/30/21 Range/Units 06:22 Hgb 9.1 L (12.0-16.0) g/dL Hct 28.2 L (36.0-46.0) % Med Orders - Current: Current Medications Acetaminophen (Acetaminophen 500 Mg Tab) 1,000 mg PO Q6H PRN PRN Reason: Pain (mild 1-3) Last Admin: 03/30/21 07:00 Dose: 1,000 mg Documented by: Benzocaine/Menthol (Benzocaine/Menthol 20%-0.5% [place] 78 Gm Cannister) 78 gm TOP ASDIRECTED PRN PRN Reason: Perineal Comfort Measure Last Admin: 03/29/21 00:31 Dose: 1 can Documented by: Bisacodyl (Bisacodyl 10 Mg Supp) 10 mg RECTAL ONETIME PRN PRN Reason: Constipation Butorphanol Tartrate (Butorphanol 1 Mg/Ml Sdv) 1 mg IVPUSH Q1H PRN PRN Reason: Pain Last Admin: 03/28/21 17:23 Dose: 1 mg Documented by: Carboprost Tromethamine (Carboprost Tromethamine 250 Mcg/1 Ml Amp) 250 mcg IM ASDIRECTED PRN PRN Reason: Post Hemorrhage Docusate Sodium (Docusate Sodium 100 Mg Cap) 100 mg PO Q12H PRN PRN Reason: Constipation Last Admin: 03/29/21 08:12 Dose: 100 mg Documented by: Emollient Ointment (Lanolin 100% Cream 7 Gm Tube) 0 gm TOP ASDIRECTED PRN PRN Reason: Sore Nipples Last Admin: 03/29/21 20:41 Dose: 7 gm Documented by: Oxytocin/Sodium Chloride (Oxytocin 30 Unit/500 Ml-Ns) 30 unit in 500 mls @ 2 mls/hr IV TITRATE EDSON; Protocol Last Admin: 03/28/21 20:56 Dose: 8 munits/min, 8 mls/hr Documented by: Lactated Ringer's (Ringers, Lactated) 1,000 mls @ 150 mls/hr IV ASDIRECTED EDSON Last Admin: 03/28/21 19:44 Dose: 150 mls/hr Documented by: Tranexamic Acid 1,000 mg/ (Sodium Chloride) 110 mls @ 660 mls/hr IV ONETIME PRN PRN Reason: Bleeding Ibuprofen (Ibuprofen 800 Mg Tab) 800 mg PO Q8H PRN PRN Reason: Pain (mild 1-3) Last Admin: 03/30/21 01:12 Dose: 800 mg Documented by: Lidocaine HCl (Lidocaine 1% 50 Ml Mdv) 50 ml INJECT ONETIME PRN PRN Reason: Laceration repair Methylergonovine Maleate (Methylergonovine 0.2 Mg/1 Ml Amp) 0.2 mg IM ASDIRECTED PRN PRN Reason: Post Hemorrhage Misoprostol (Misoprostol 25 Mcg (1/4 Of 100 Mcg) Tab) 25 mcg VAG ONETIME PRN PRN Reason: Cervical Ripening Misoprostol (Misoprostol 25 Mcg (1/4 Of 100 Mcg) Tab) 25 mcg VAG Q6H PRN PRN Reason: Cervical Ripening Last Admin: 03/28/21 13:11 Dose: 25 mcg Documented by: Misoprostol (Misoprostol 200 Mcg Tab) 200 mcg PO ONETIME PRN PRN Reason: Post Hemorrhage Nalbuphine HCl (Nalbuphine 10 Mg/1 Ml Vial) 10 mg IVPUSH Q1H PRN PRN Reason: Pain (severe 7-10) Ondansetron HCl (Ondansetron 4 Mg/2 Ml Sdv) 4 mg IVPUSH Q4H PRN PRN Reason: Nausea/Vomiting Oxycodone HCl (Oxycodone 5 Mg Tab) 5 mg PO Q2H PRN PRN Reason: Pain (severe 7-10) Sodium Chloride (Sodium Chloride 0.9% 10 Ml Syringe) 10 ml FLUSH ASDIRECTED PRN PRN Reason: Keep Vein Open Sodium Chloride (Sodium Chloride 0.9% 2.5 Ml Syringe) 2.5 ml FLUSH ASDIRECTED PRN PRN Reason: Keep Vein Open Sodium Chloride (Sodium Chloride 0.9% 10 Ml Sdv) 10 ml IV ASDIRECTED PRN PRN Reason: IV Use Sterile Water (Water For Irrigation,Sterile 1,000 Ml Container) 1,000 ml IRR ASDIRECTED PRN PRN Reason: delivery Terbutaline Sulfate (Terbutaline 1 Mg/Ml Sdv) 0.25 mg SUBCUT ASDIRECTED PRN PRN Reason: Tacysystole Witch Kaylee (Witch Kaylee Medicated Pads 40/Jar) 1 pad TOP ASDIRECTED PRN PRN Reason: comfort care Last Admin: 03/29/21 00:32 Dose: 1 can Documented by: Discontinued Medications Fentanyl (Fentanyl 100 Mcg/2 Ml Sdv) Confirm Administered Dose 400 mcg .ROUTE .STK-MED ONE Stop: 03/28/21 18:57 Ropivacaine (Naropin 0.2%) Confirm Administered Dose 200 mls @ as directed .ROUTE .STK-MED ONE Stop: 03/28/21 18:56 Measles/Mumps/Rubella Vaccine Live (Measles, Mumps & Rubella Vaccine 0.5 Ml Sdv) 0.5 ml SUBCUT .ONCE ONE Stop: 03/29/21 00:13 - Interaction Disposition, : in Room with Family Interaction: Holding Feeding: Attempted ; Nursed Fair/Poor, Bottle Fed Support Person: - Recovery Exam Fundal Tone: Firm Fundal Level: 1 Fingerbreadths Below Umbilicus Fundal Placement: Midline Lochia Amount: Scant Lochia Color: Rubra/Red Other Perinuem Description: First degree tear,repaired Bladder Status: Voiding Urinary Elimination: Voided - Exam General: Alert, Oriented Neck: Supple Lungs: Normal Respiratory Effort GI/Abdominal Exam: Soft, Non-Tender, No Distention Extremities: Non-Tender Skin: Warm, Dry, Intact Neurological: No New Focal Deficit Psy/Mental Status: Alert, Normal Affect, Normal Mood - Problem List & Annotations (1) Vaginal delivery SNOMED Code(s): 787734899 Code(s): O80 - ENCOUNTER FOR FULL-TERM UNCOMPLICATED DELIVERY Status: Acute Current Visit: Yes (2) Advanced maternal age, delivered SNOMED Code(s): 746823997, 007468001 Code(s): HFS7435 - Status: Acute Current Visit: Yes (3) resulting from in-vitro fertilization SNOMED Code(s): 06854849027767 Code(s): O09.819 - SUPRVSN OF PREG RSLT FROM ASSISTED REPRODCTV TECH, UNSP TRI Status: Acute Current Visit: Yes - Problem List Review Problem List Initiated/Reviewed/Updated: Yes - My Orders Last 24 Hours: My Active Orders 03/30/21 08:55 Ready for Discharge [RC] PER UNIT ROUTINE - Assessment Assessment:: 35yo s/p at 39w0d, PPD#2 - Plan Plan:: Continue routine care. Rubella non-immune - MMR IVF AMA Discharge home today. Reviewed discharge instructions/precautions.
== END 2021-03-30 15:40 | disposition home or self-care (01) | DRG 807 ==
LOC: MW.OBCHECK 07:44 → MW.OB 07:45 → MW.OBCHECK 08:26 → MW.OB 08:26 → OBSVTOIN 23:40 → MW.OB 03-29 04:25
PROVIDERS: ADMIT Obstetrics & Gynecology; ATTEND Obstetrics & Gynecology
PROC: 10E0XZZ Delivery of Products of Conception, External Approach (ICD-10-PCS; principal; 2021-03-28)
PROC: 3E0P7VZ Introduction of Hormone into Female Reproductive, Via Natural or Artificial Opening (ICD-10-PCS; 2021-03-28)
PROC: 10907ZC Drainage of Amniotic Fluid, Therapeutic from Products of Conception, Via Natural or Artificial Opening (ICD-10-PCS; 2021-03-28)
PROC: 3E033VJ Introduction of Other Hormone into Peripheral Vein, Percutaneous Approach (ICD-10-PCS; 2021-03-28)
PROC: 0HQ9XZZ Repair Perineum Skin, External Approach (ICD-10-PCS; 2021-03-28)
PROC: 3E0R3BZ Introduction of Anesthetic Agent into Spinal Canal, Percutaneous Approach (ICD-10-PCS; 2021-03-28)
PROC: 00HU33Z Insertion of Infusion Device into Spinal Canal, Percutaneous Approach (ICD-10-PCS; 2021-03-28)
DX: O70.0 First degree perineal laceration during delivery (principal); Z37.0 Single live birth; Z3A.39 39 weeks gestation of pregnancy
CPT/HCPCS: 36415; 51701; 85014; 85018; 85027; 86592; 86850; 86900; 86901; A9270-GY; J0595; J2590; J3010; J7120